=== PATIENT | female | born 1955 | race African-American/Black ===

== ENCOUNTER 2019-04-11 09:18 | Emergency (ER) | payer MEDICAID ==
[~2019-04-11] VITALS: Ht 160 cm; Wt 72.0 kg
[~2019-04-11 09:18] MED LIST: ATOR20TA PO; GABA300C10 PO; HYDR50TA13 PO; LOSA50TA14 PO; LYSI100010 PO-COUM; MV-M1TAB54 PO; OMEG1CAP34 PO; ZOLP10TA5 PO
--- NOTE | 2019-04-11 09:55 | NUR ---
PT HERE WITH C/O RIGHT SIDED HIP/BACK PAIN, SOMETIMES RADIATING DOWN RIGHT LEG. PT STATES SHE HAS CHRONIC BACK PAIN, "NEVER THIS INTENSE." PT AAO X 4, NAD, ROOM AIR, RESTLESS ON GURNEY. CALL LIGHT WITHIN REACH AND FRIEND AT BEDSIDE. MD TO BEDSIDE FOR EXAM. PT DRESSED IN GOWN AND ATTACHED TO MONITOR. TENDERNESS ON PALPATION TO RIGHT SI JOINT. SIDERAIL X [address]
--- NOTE | 2019-04-11 09:56 | NUR ---
XRAY TO BEDSIDE.
[2019-04-11] MEDS ORDERED: METHOCARBAMOL 750 MG TABLET ONE (09:59)
[2019-04-11] MEDS ORDERED: KETOROLAC 30 MG/1 ML ONE ×2 (09:59→10:34)
[2019-04-11] MEDS ORDERED: KETOROLAC 30 MG/1 ML IVPush ONE (10:00)
[2019-04-11] MEDS ORDERED: ONDANSETRON 2MG/ML, 2ML ONE (10:00)
[2019-04-11] MEDS ORDERED: SODIUM CHLORIDE FLUSH 10ML SYR IVF ONE (10:00)
[2019-04-11] MEDS ORDERED: ONDANSETRON 2MG/ML, 2ML IVPush ONE (10:00)
[2019-04-11] MEDS ORDERED: METHOCARBAMOL 750 MG TABLET PO ONE (10:00)
--- NOTE | 2019-04-11 10:12 | NUR ---
PT MEDICATED WITH PO ROBAXIN. TECH AT BEDSIDE FOR PIV START.
[2019-04-11 10:14] VITALS: BP 158/87
[2019-04-11] MEDS ORDERED: ONDANSETRON ODT 4 MG ONE (10:30)
[2019-04-11] MEDS ORDERED: KETOROLAC 30 MG/1 ML IM ONE (10:30)
[2019-04-11] MEDS ORDERED: ONDANSETRON ODT 4 MG PO ONE (10:30)
--- NOTE | 2019-04-11 10:31 | NUR ---
UNABLE TO ESTABLISH IV ACCESS, MD UPDATED AND MED ROUTES CHANGED.
--- NOTE | 2019-04-11 10:33 | NUR ---
PT MEDICATED PER MAR.
--- NOTE | 2019-04-11 11:04 | NUR ---
MD TO BEDSIDE TO DISCUSS POC. PLAN FOR D/C.
--- NOTE | 2019-04-11 11:09 | NUR ---
Patient/Caregiver given discharge instructions and they have confirmed that they understand the instructions. Patient ambulatory with steady gait.
== END 2019-04-11 11:16 ==
LOC: ED 11:05
DX: M46.1 Sacroiliitis, not elsewhere classified (principal); I10 Essential (primary) hypertension; E78.5 Hyperlipidemia, unspecified
CPT/HCPCS: 72110; 96372; 99283; J1885; Q0162

== ENCOUNTER 2019-07-09 18:24 | Emergency (ER) | payer MEDICAID ==
[~2019-07-09] VITALS: Ht 160 cm; Wt 75.0 kg
--- NOTE | 2019-07-09 18:43 | NUR ---
SEE TRIAGE NOTE. PT PLACED ON ALL ROOM MONITORING. VSS. CALL LIGHT WITHIN REACH, WARM BLANKET PROVIDED.
[2019-07-09 20:07] VITALS: BP 126/74
== END 2019-07-09 20:10 | disposition home or self-care (01) ==
LOC: ED 19:57
DX: Z98.890 Other specified postprocedural states (principal); I10 Essential (primary) hypertension; E78.5 Hyperlipidemia, unspecified
CPT/HCPCS: 99283